=== PATIENT | female | born 1975 | race Caucasian/White ===

== ENCOUNTER 2021-01-12 06:36 | Inpatient (IN) ==
--- NOTE | 2020-12-15 12:29 | PAT Medication Instructions ---
Medication Instructions Date of Service December 15, 2020 Home Medications Medication Instructions Recorded metoprolol tartrate 25 mg tablet 25 mg PO BID #180 tab 11/28/19 lidocaine 5 % topical patch 1 patch TOP DAILY #30 ea 02/25/20 epinephrine 0.3 mg/0.3 mL 0.3 mg IM ONCE PRN #2 ea 03/24/20 injection, auto-injector clobetasol 0.05 % topical cream 1 applic TOP BID #60 g 06/08/20 methotrexate sodium 2.5 mg tablet See Rx Instructions PO WEEKLY #40 08/11/20 tab valacyclovir 500 mg tablet 500 mg PO BID #60 tab 10/06/20 albuterol sulfate 90 mcg/actuation 1 inh INHALATION QID PRN #8.5 g 10/26/20 aerosol inhaler tizanidine 2 mg capsule 2 mg PO Q8H PRN #270 cap 11/16/20 hydroxyzine HCl 25 mg tablet 25 mg PO BID PRN #30 tab 12/04/20 metoprolol tartrate 25 mg tablet 25 mg PO BID lidocaine 5 % topical patch 1 patch TOP DAILY epinephrine 0.3 mg/0.3 mL injection, auto-injector 0.3 mg IM ONCE PRN clobetasol 0.05 % topical cream 1 applic TOP BID methotrexate sodium 2.5 mg tablet PO WEEKLY valacyclovir 500 mg tablet 500 mg PO BID albuterol sulfate 90 mcg/actuation aerosol inhaler 1 inh INHALATION QID PRN tizanidine 2 mg capsule 2 mg PO Q8H PRN hydroxyzine HCl 25 mg tablet 25 mg PO BID PRN buprenorphine-naloxone [Suboxone] 1 tab SUBLINGUAL BID gabapentin 800 mg PO BID Continue as directed lidocaine 5 % topical patch 1 patch TOP DAILY epinephrine 0.3 mg/0.3 mL injection, auto-injector 0.3 mg IM ONCE PRN clobetasol 0.05 % topical cream 1 applic TOP BID *Do not use topical creams on or near surgical site within 24 hours of surgery. ASK your prescriber and surgeon methotrexate sodium 2.5 mg tablet PO WEEKLY DO NOT take the morning of surgery tizanidine 2 mg capsule 2 mg PO Q8H PRN hydroxyzine HCl 25 mg tablet 25 mg PO BID PRN Take morning of surgery With a small sip of water, OTHERWISE NOTHING TO EAT OR DRINK AFTER MIDNIGHT: metoprolol tartrate 25 mg tablet 25 mg PO BID valacyclovir 500 mg tablet 500 mg PO BID albuterol sulfate 90 mcg/actuation aerosol inhaler 1 inh INHALATION QID PRN (if needed) buprenorphine-naloxone [Suboxone] 1 tab SUBLINGUAL BID gabapentin 800 mg PO BID Take evening before surgery metoprolol tartrate 25 mg tablet 25 mg PO BID valacyclovir 500 mg tablet 500 mg PO BID albuterol sulfate 90 mcg/actuation aerosol inhaler 1 inh INHALATION QID PRN (if needed) tizanidine 2 mg capsule 2 mg PO Q8H PRN (if needed) hydroxyzine HCl 25 mg tablet 25 mg PO BID PRN (if needed) buprenorphine-naloxone [Suboxone] 1 tab SUBLINGUAL BID gabapentin 800 mg PO BID Other Notes If you have any questions please call us at [phone] or [phone] or [phone] or [phone]
--- NOTE | 2020-12-16 09:27 | Anesthesiology Consultation ---
Date of Service December 16, 2020 Assessment & Plan (1) Encounter for pre-operative examination: Chart Review Chart Review: Acceptable Risk for Surgery (pending preop Covid testing results ) and Patient seen in Pre Admission Testing PT ADAMANTLY REFUSING SPINAL- REQUESTING GENERAL ANESTHESIA ONLY Per PAT appt on 12/16/20, patient denies any recent travel. No known Covid positive contacts or Covid related symptoms. No known Covid infections in the past 90 days. Preop Covid testing scheduled 01/05/21= awaiting results. Educated on importance of self quarantining, social distancing and wearing mask in public both for the patient and household contacts. Teaching & Discussion Pre-Anesthesia Teaching/Discussion Notes: Instructed NPO after midnight before surgery,except medications with 15 cc of water. Medication instructions pro vided according to the [facility] guidelines. History Surgery Operation Date: 01/12/21 11:15 Proposed Procedures p Left Total Knee Arthroplasty - Jan Yuan DO Height/Weight Height: 5 ft 1 in Weight: 74.4 kg Allergies Allergy/AdvReac Type Severity Reaction Status Date / Time bee venom protein (honey bee) Allergy Severe Anaphylaxis Verified 12/08/20 16:02 iodine Allergy Severe Anaphylaxis Verified 12/08/20 16:02 NSAIDS (Non-Steroidal Allergy Severe Hives Verified 12/08/20 16:02 Anti-Inflamma Penicillins Allergy Severe Hives Verified 12/08/20 16:02 tramadol Allergy Severe Hives Verified 12/08/20 16:02 pregabalin [From Lyrica] Allergy Mild nausea Verified 12/08/20 16:02 aspirin Allergy seizures Verified 12/08/20 16:02 shellfish derived Allergy Anaphylaxis Verified 12/08/20 16:02 duloxetine [From Cymbalta] AdvReac Severe Swelling Verified 12/08/20 16:02 of Lip/Tongue/Throat ketorolac [From Toradol] AdvReac Hives Verified 12/08/20 16:02 Medications Home Medications Medication Instructions Recorded Confirmed Last Taken metoprolol tartrate 25 mg tablet 25 mg PO BID #180 tab 11/28/19 12/08/20 Unknown lidocaine 5 % topical patch 1 patch TOP DAILY #30 ea 02/25/20 12/08/20 Unknown epinephrine 0.3 mg/0.3 mL 0.3 mg IM ONCE PRN #2 ea 03/24/20 12/08/20 Unknown injection, auto-injector clobetasol 0.05 % topical cream 1 applic TOP BID #60 g 06/08/20 12/08/20 Unknown methotrexate sodium 2.5 mg tablet See Rx Instructions PO WEEKLY #40 08/11/20 12/08/20 Unknown tab valacyclovir 500 mg tablet 500 mg PO BID #60 tab 10/06/20 12/08/20 Unknown albuterol sulfate 90 mcg/actuation 1 inh INHALATION QID PRN #8.5 g 10/26/20 12/08/20 Unknown aerosol inhaler tizanidine 2 mg capsule 2 mg PO Q8H PRN #270 cap 11/16/20 12/08/20 Unknown hydroxyzine HCl 25 mg tablet 25 mg PO BID PRN #30 tab 12/04/20 12/08/20 Unknown buprenorphine-naloxone [Suboxone] 1 tab SUBLINGUAL BID 12/08/20 12/08/20 Unknown gabapentin 800 mg PO BID 12/08/20 12/08/20 Unknown Past Medical History Medical History (Updated 12/16/20 @ 16:37 by Stacy Whelan PA-C) ADHD Anxiety Chronic radicular lumbar pain DDD (degenerative disc disease) Fibromyalgia History of anesthesia reaction combative History of seizure 5 years ago - reaction to aspirin per pt HTN (hypertension) Hyperlipidemia no meds at present Lumbar post-laminectomy syndrome Osteoarthritis 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) (imaging at [facility] - last eval 1 year ago) Psoriatic arthritis Follows with rheum Has psoriasis on left knee - pt will be following up with surgeon later today and will inform surgeon Restless leg syndrome Rheumatoid arthritis Sacroiliitis Scoliosis Spondylisthesis TMJ (temporomandibular joint disorder) Jaw clicking- occ locking Exercise / Class Metabolic Activity II 4-5 Yardwork/Stairs/Walk up hill (one flight of stairs- no chest pain or SOB ) Past Family History Family History Mother Diabetes Bladder cancer Anxiety Kidney stones Hypertension Brother Diabetes Hypertension Sister Diabetes Anxiety Kidney stones Hypertension Other No family history of adverse response to anesthesia Denies family history of Ovarian cancer Prostate cancer Myocardial infarction Breast cancer Colorectal cancer Past Surgical History Surgical History History of appendectomy (~1999) History of arthroscopy of left knee History of cholecystectomy (~1999) History of hysterectomy (~2007) History of knee surgery (~2007) Left History of partial hysterectomy History of repair of anterior cruciate ligament of left knee History of spinal surgery x 4 History of tonsillectomy History of tubal ligation Past Anesthesia History No Hx of Anesthesia Complications (with exception to occ combativeness ) and No Family Hx of Anesthesia Complications (with exception to sister being combative post op ) History of PONV No Hx of Motion Sickness and History of PONV Social History Smoking Status: Current every day smoker tobacco type: cigarettes Smoking cigarettes per day: 1/2 ppd Do You Dip or Chew Tobacco: No Hx Alcohol Use: No Hx Substance Use: Yes (on suboxone for pain control per pt) substance use type: marijuana Last Used Substance: Days (ago) Review of Systems Hx of blood transfusion in 2008- s/p lumbar surgery Patient denies chest pain, shortness of breath, dyspnea on exertion, reflux, cough, wheezing, palpitations. No hx of stroke, MS, apnea/snoring. No hx of blood clots. Physical Exam Vital Signs VITALS BP 137/86 P 76 TEMP 98.7 SP02 96% RESP 16 Constitutional no acute distress ENMT Mouth: no TMJ clicking Thyromental Distance: > or= 3.5 Finger Breadths (3.5) Mallampati Class: II Missing all teeth Neck neck extension not limited Respiratory normal respiratory effort; no respiratory distress Auscultation: lungs clear to auscultation bilaterally; no wheezes Cardiovascular Rate/Rhythm: regular rate and regular rhythm Heart Sounds: no murmur Vessels: no carotid bruit Musculoskeletal Spine: no pain with cervical ROM Extremities: extremities normal to inspection Psychiatric Orientation: alert Testing Laboratory Results 12/16/20 10:07 12/16/20 10:07 PT 10.4 Seconds (9.0-12.0) 12/16/20 10:37 INR 1.0 (0.9-1.1) 12/16/20 10:37 APTT 27.7 Seconds (21.0-31.0) 12/16/20 10:37 Hemoglobin A1c 5.5 % (4.5-5.6) 12/16/20 10:07 Urine Color Yellow 12/16/20 10:07 Urine Appearance Clear (Clear) 12/16/20 10:07 Urine pH 5.5 (4.5-7.5) 12/16/20 10:07 Ur Specific [place] 1.019 (1.000-1.030) 12/16/20 10:07 Urine Protein Negative (Negative) 12/16/20 10:07 Urine Glucose (UA) Negative (Negative) 12/16/20 10:07 Urine Ketones Negative (Negative) 12/16/20 10:07 Urine Nitrite Negative (Negative) 12/16/20 10:07 Ur Leukocyte Esterase Negative (Negative) 12/16/20 10:07 Blood Type B Positive 12/16/20 10:07 Antibody Screen NEGATIVE 12/16/20 10:07 Electrocardiogram Date: 12/16/20 Findings: + NSR @ (63bpm) Normal EKG per cardio. Chest X-Ray Date: 12/16/20 Findings: + NAD Cervical Spine Date: 12/16/20 FINDINGS: Lateral, flexion, extension views of the cervical spine were submitted for review. There is 2 mm of anterolisthesis of C4 on C5. This remains unchanged throughout flexion and extension. The remaining vertebral bodies are well aligned. No fractures identified. The cervical spine is visualized from C1 through the superior endplate of T1. The C1-C2 interval is intact. Prevertebral soft tissues are within normal limits. Mild disc space narrowing at C3-C4. Mild to moderate disc space narrowing at C5-C6 and C6-C7 with small endplate osteophytes. IMPRESSION: 1. The C1-C2 interval is intact. 2. Mild anterolisthesis of C4 on C5 which is unchanged throughout flexion and extension. 3. Degenerative changes as described above. Other Testing CTA of neck with contrast 08/30/19= Grossly stable 3mm and 5mm pseudoaneursym arising in the left proximal ICA, along the area of marked tortuosity. No significant stenosis seen in the cervical carotid or vertebral arteries.
--- NOTE | 2020-12-16 10:31 | XRay Report ---
XR chest Pre-admission PA/Lat HISTORY: 45 years-old Female pat chronic low back pain COMPARISON: None TECHNIQUE: PA and lateral views of the chest FINDINGS: Cardiomediastinal and hilar silhouettes are within normal limits. No pneumothorax, pleural effusion, airspace consolidation or overt pulmonary edema. The bones of the chest appear grossly intact. Spondy litic spurring of the spine. Partially imaged lumbar spinal fusion hardware. Surgical clips project o luis the upper abdomen. IMPRESSION: No acute process. ACT 112: Negative or not required by law. The above report was generated using voice recognition software. It may contain grammatical, syntax o r spelling errors. Electronically signed by: Sabino Stone M.D. 12/16/2020 10:30 AM
--- NOTE | 2020-12-16 10:31 | XRay Report ---
XR cervical spine 2 or 3V CLINICAL HISTORY: Rheumatoid arthritis. Preop examination. COMPARISON STUDY: None. FINDINGS: Lateral, flexion, extension views of the cervical spine were submitted for review. There is 2 mm of anterolisthesis of C4 on C5. This remains unchanged throughout flexion and extension. The re maining vertebral bodies are well aligned. No fractures identified. The cervical spine is visualized from C1 through the superior endplate of T1. The C1-C2 interval is intact. Prevertebral soft tissues are within normal limits. Mild disc space narrowing at C3-C4. Mild to moderate disc space narrowing a t C5-C6 and C6-C7 with small endplate osteophytes. IMPRESSION: 1. The C1-C2 interval is intact. 2. Mild anterolisthesis of C4 on C5 which is unchanged throughout flexion and extension. 3. Degenerative changes as described above. ACT 112: Negative or not required by law. Electronically signed by: Michel Baldwin M.D. 12/16/2020 10:30 AM
[2020-12-16 10:43] LABS: Basophils # (auto) 0.03 K/uL (0-0.2); Basophils % (auto) 0.3 %; Eosinophils # (auto) 0.12 K/uL (0-0.5); Eosinophils % (auto) 1.3 %; Hematocrit (blood only) 41.7 % (37-47); Hemoglobin 14.9 g/dL (12.0-16.0); Immature Granulocytes # (auto) 0.02 K/uL (0.00-0.02); Immature Granulocytes % (auto) 0.2 %; Lymphocytes # (auto) 2.73 K/uL (1.2-3.4); Lymphocytes % (auto) 30.6 %; Mean Corpuscular Hgb Conc 35.7 g/dL (32-36); Mean Corpuscular Volume 92.5 fL (80-100); Mean Platelet Volume 9.4 fL (7.4-10.4); Monocytes # (auto) 0.65 K/uL (0.11-0.59); Monocytes % (auto) 7.3 %; Neutrophils # (auto) 5.38 K/uL (1.4-6.5); Neutrophils % (auto) 60.3 %; Platelet Count 392 K/uL (130-400); Red Blood Count 4.51 M/uL (4.2-5.4); White Blood Count 8.93 K/uL (4.8-10.8)
[2020-12-16 11:22] LABS: Appearance Urine Clear (Clear); Bilirubin Urine Negative (Negative); Blood Urine Negative (Negative); Color Urine Yellow; Glucose Urine UA Negative (Negative); Ketones Urine Negative (Negative); Leukocyte Esterase Urine Negative (Negative); Nitrite Urine Negative (Negative); Protein Urine Negative (Negative); Specific Gravity Urine 1.019 (1.000-1.030); Urobilinogen Urine Negative (Negative); pH Urine 5.5 (4.5-7.5)
[2020-12-16 11:23] LABS: Partial Thromboplastin Ratio 1.1; Partial Thromboplastin Time 27.7 Seconds (21.0-31.0); Prothrombin Time 10.4 Seconds (9.0-12.0)
[2020-12-16 11:24] LABS: Estimated Average Glucose 111 mg/dl; Hemoglobin A1C 5.5 % (4.5-5.6)
[2020-12-16 11:56] LABS: Albumin Level 3.6 gm/dl (3.4-5.0); BUN Creatinine Ratio 21.6 (10-20); Calcium 9.3 mg/dl (8.5-10.1); Creatinine Clr Calc Pharmacy 108.7 ml/min; Est GFR (African American) 126.5; Est GFR (Non-African American) 109.1
--- NOTE | 2020-12-17 06:12 | Electrocardiogram Report ---
Test Reason : Blood Pressure : / mmHG Vent. Rate : 063 BPM Atrial Rate : 063 BPM P-R Int : 136 ms QRS Dur : 094 ms QT Int : 426 ms P-R-T Axes : 059 086 071 degrees QTc Int : 435 ms Normal sinus rhythm Normal ECG No previous ECGs available Confirmed by Antonino Foster ([id number]) on 12/17/2020 6:12:20 AM Referred By: Jan Yuan Confirmed By:Antonino Foster
--- NOTE | 2020-12-29 13:16 | History & Physical Report ---
Date of Service December 29, 2020 date of surgery: 01/12/21 Procedure: Left Total Knee Arthroplasty Assessment & Plan (1) Arthritis of knee, left: Further care discussed with patient and at this point in time has failed conservative measures and would like to proceed with a left total knee re placement. Plan on discharge will be home with home health physical therapy. DVT prophalaxis with TEDs, SCDs and will also place on aspirin 81 mg p.o. b.i.d. for a month postop. Patient will have follow up appointment in our office two weeks post op for staple/suture removal and re-evaluation. Patient otherwise has no other questions or concerns. will need to get note from her pain management prov ider with instructions for her post-operative management. The risks and benefits have been discussed including, but not limited to, risk of infection, nerve injury, stiffness, loss of motion, failure to improve, etc. Reasonable outcomes and options of treatment were discussed. An explanation of appropriate alternatives to the procedure that may be advantageous were discussed and their risks and benefits, as well as the risks and benefits of not proceeding with treatment. I offered to answer any additional inquiries concerning the treatment involved. All the patient's questions were answered. The patient is agreeable, understanding of the treatment plan and alternatives, and wishes to proceed with the treatment plan. History of Present Illness Chief Complaint: left knee pain Primary Care Provider: Romain Sim DO Patient is a 45 year old female who complains of left knee pain, presents for pre-op evaluation prior to a left total knee replacement by Dr. Yuan at [facility]. She complains of pain, decreased range of motion and stiffness in her left knee. Currently the patient states that the symptoms are moderate-severe. The pain is described as aching, sharp and throbbing. Her symptoms are aggravated by ascending stairs, daily activities, first steps while awake walking. she is unable to take NSAIDs due to hives. she has been treated with previous cortisone injections in the past without much relief and had prior knee surgery in approximately 2007. Allergies Allergy/AdvReac Type Severity Reaction Status Date / Time bee venom protein (honey bee) Allergy Severe Anaphylaxis Verified 12/08/20 16:02 iodine Allergy Severe Anaphylaxis Verified 12/08/20 16:02 NSAIDS (Non-Steroidal Allergy Severe Hives Verified 12/08/20 16:02 Anti-Inflamma Penicillins Allergy Severe Hives Verified 12/08/20 16:02 tramadol Allergy Severe Hives Verified 12/08/20 16:02 pregabalin [From Lyrica] Allergy Mild nausea Verified 12/08/20 16:02 aspirin Allergy seizures Verified 12/08/20 16:02 shellfish derived Allergy Anaphylaxis Verified 12/08/20 16:02 duloxetine [From Cymbalta] AdvReac Severe Swelling Verified 12/08/20 16:02 of Lip/Tongue/Throat ketorolac [From Toradol] AdvReac Hives Verified 12/08/20 16:02 Home Medications Medication Instructions Recorded Confirmed Type metoprolol tartrate 25 mg tablet 25 mg PO BID #180 tab 11/28/19 12/08/20 Rx lidocaine 5 % topical patch 1 patch TOP DAILY #30 ea 02/25/20 12/08/20 Rx epinephrine 0.3 mg/0.3 mL 0.3 mg IM ONCE PRN #2 ea 03/24/20 12/08/20 Rx injection, auto-injector clobetasol 0.05 % topical cream 1 applic TOP BID #60 g 06/08/20 12/08/20 Rx methotrexate sodium 2.5 mg tablet See Rx Instructions PO WEEKLY #40 08/11/20 12/08/20 Rx tab valacyclovir 500 mg tablet 500 mg PO BID #60 tab 10/06/20 12/08/20 Rx albuterol sulfate 90 mcg/actuation 1 inh INHALATION QID PRN #8.5 g 10/26/20 12/08/20 Rx aerosol inhaler tizanidine 2 mg capsule 2 mg PO Q8H PRN #270 cap 11/16/20 12/08/20 Rx hydroxyzine HCl 25 mg tablet 25 mg PO BID PRN #30 tab 12/04/20 12/08/20 Rx buprenorphine-naloxone [Suboxone] 1 tab SUBLINGUAL BID 12/08/20 12/08/20 History gabapentin 800 mg PO BID 12/08/20 12/08/20 History Past Med/Surg History Medical History ADHD Anxiety Chronic radicular lumbar pain DDD (degenerative disc disease) Fibromyalgia History of anesthesia reaction combative History of seizure 5 years ago - reaction to aspirin per pt HTN (hypertension) Hyperlipidemia no meds at present Lumbar post-laminectomy syndrome Osteoarthritis 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) (imaging at [facility] - last eval 1 year ago) Psoriatic arthritis Follows with rheum Has psoriasis on left knee - pt will be following up with surgeon later today and will inform surgeon Restless leg syndrome Rheumatoid arthritis Sacroiliitis Scoliosis Spondylisthesis TMJ (temporomandibular joint disorder) Jaw clicking- occ locking Surgical History History of appendectomy (~1999) History of arthroscopy of left knee History of cholecystectomy (~1999) History of hysterectomy (~2007) History of knee surgery (~2007) Left History of partial hysterectomy History of repair of anterior cruciate ligament of left knee History of spinal surgery x 4 History of tonsillectomy History of tubal ligation Family History Mother Diabetes Bladder cancer Anxiety Kidney stones Hypertension Brother Diabetes Hypertension Sister Diabetes Anxiety Kidney stones Hypertension Other No family history of adverse response to anesthesia Denies family history of Ovarian cancer Prostate cancer Myocardial infarction Breast cancer Colorectal cancer Social History Smoking Status: Current every day smoker Age Started Using Tobacco: 10; packs per day: 0.5; Years Smoked: 34; Cigarettes Per Day: 1/2 ppd; Second Hand Exposure: No; Do You Dip or Chew Tobacco: No; Tobacco Cessation Education Requested by Patient: No Hx Alcohol Use: No Hx Substance Use: Yes (on suboxone for pain control per pt) Last Used Substance: Days (ago) Preferred Language: Salvadorean Communication Ability: Effective Visual Impairment: No Limitations Hearing Ability: Normal Electrical Foreman Required: No Beliefs That Will Affect Care: None marital status: Current Living Situation: Other Current Living Situation Comment: room mate current occupational status: disabled Feels Safe at Home: Yes Safety Concerns: Feels Safe At This Time Childhood Exposure to Second-Hand Smoke: Yes caffeine: No Dental Care, Regularly: No Physical Activity Frequency: Does not Exercise Seatbelt Use: always Sunscreen Use: Yes Assistive Devices: Brace/Splint/Immobilizer, Denture - Upper, Denture - Lower and Walker Review of Systems Review of Systems: All systems reviewed & are unremarkable except as noted in HPI & below Constitutional: no fever, no chills and no sweats Respiratory: no cough and no dyspnea Cardiovascular: no chest pain, no dyspnea and no orthopnea Gastrointestinal: no abdominal pain, no nausea and no vomiting Musculoskeletal: as per Subjective / HPI Physical Exam Physical Exam: HT: 5ft 1in WT: 74.4kg Constitutional: WD/WN, vitals as above no acute distress Respiratory: normal respiratory effort, lungs clear to auscultation no respiratory distress, no labored breathing and does not use accessory muscles Cardiovascular: RRR, no murmur, no edema Gastrointestinal (Abdomen): normal bowel sounds, soft, nontender, no hepatosplenomegaly Musculoskeletal: Knee: + knee abnormal to inspection (left knee), + effusion (+1 effusion), + surgical incision, + limited ROM of knee (ROM 0/3/110), + knee ROM with crepitation, + joint line tenderness (medial joint line) and + Mónica's sign positive; no deformity, no skin erythema, no ecchymosis, no valgus laxity, no varus laxity, anterior drawer test negative, Nhan's sign negative and pivot shift test negative Results & Data Results & Data ([facility]) Laboratory Results Laboratory Results WBC 8.93 K/uL (4.8-10.8) 12/16/20 10:07 RBC 4.51 M/uL (4.2-5.4) 12/16/20 10:07 Hgb 14.9 g/dL (12.0-16.0) 12/16/20 10:07 Hct 41.7 % (37-47) 12/16/20 10:07 MCV 92.5 fL (80-100) 12/16/20 10:07 MCH 33.0 pg (25-34) 12/16/20 10:07 MCHC 35.7 g/dL (32-36) 12/16/20 10:07 RDW Std Deviation 47.0 fL (36.4-46.3) H 12/16/20 10:07 RDW Coeff of [place] 14.0 % (11.5-14.5) 12/16/20 10:07 Plt Count 392 K/uL (130-400) 12/16/20 10:07 MPV 9.4 fL (7.4-10.4) 12/16/20 10:07 Immature Gran % (Auto) 0.2 % 12/16/20 10:07 Neut % (Auto) 60.3 % 12/16/20 10:07 Lymph % (Auto) 30.6 % 12/16/20 10:07 Valley % (Auto) 7.3 % 12/16/20 10:07 Eos % (Auto) 1.3 % 12/16/20 10:07 Baso % (Auto) 0.3 % 12/16/20 10:07 Neut # (Auto) 5.38 K/uL (1.4-6.5) 12/16/20 10:07 Lymph # (Auto) 2.73 K/uL (1.2-3.4) 12/16/20 10:07 Valley # (Auto) 0.65 K/uL (0.11-0.59) H 12/16/20 10:07 Eos # (Auto) 0.12 K/uL (0-0.5) 12/16/20 10:07 Baso # (Auto) 0.03 K/uL (0-0.2) 12/16/20 10:07 Immature Gran # (Auto) 0.02 K/uL (0.00-0.02) 12/16/20 10:07 PT 10.4 Seconds (9.0-12.0) 12/16/20 10:37 INR 1.0 (0.9-1.1) 12/16/20 10:37 APTT 27.7 Seconds (21.0-31.0) 12/16/20 10:37 PTT Ratio 1.1 12/16/20 10:37 Sodium 137 mmol/L (136-145) 12/16/20 10:07 Potassium 4.0 mmol/L (3.5-5.1) 12/16/20 10:07 Chloride 107 mmol/L (98-107) 12/16/20 10:07 Carbon Dioxide 24 mmol/L (21-32) 12/16/20 10:07 Anion Gap 6.0 (3-11) 12/16/20 10:07 BUN 13 mg/dl (7-18) 12/16/20 10:07 Creatinine 0.59 mg/dl (0.6-1.2) L 12/16/20 10:07 Est Cr Clr Drug Dosing 108.7 ml/min 12/16/20 10:07 Est GFR ( Amer) 126.5 12/16/20 10:07 Est GFR (Non-Af Amer) 109.1 12/16/20 10:07 BUN/Creatinine Ratio 21.6 (10-20) H 12/16/20 10:07 Glucose 93 mg/dl (70-99) 12/16/20 10:07 Estimat Average Glucose 111 mg/dl 12/16/20 10:07 Hemoglobin A1c 5.5 % (4.5-5.6) 12/16/20 10:07 Calcium 9.3 mg/dl (8.5-10.1) 12/16/20 10:07 Albumin 3.6 gm/dl (3.4-5.0) 12/16/20 10:07 Urine Color Yellow 12/16/20 10:07 Urine Appearance Clear (Clear) 12/16/20 10:07 Urine pH 5.5 (4.5-7.5) 12/16/20 10:07 Ur Specific [place] 1.019 (1.000-1.030) 12/16/20 10:07 Urine Protein Negative (Negative) 12/16/20 10:07 Urine Glucose (UA) Negative (Negative) 12/16/20 10:07 Urine Ketones Negative (Negative) 12/16/20 10:07 Urine Blood Negative (Negative) 12/16/20 10:07 Urine Nitrite Negative (Negative) 12/16/20 10:07 Urine Bilirubin Negative (Negative) 12/16/20 10:07 Urine Urobilinogen Negative (Negative) 12/16/20 10:07 Ur Leukocyte Esterase Negative (Negative) 12/16/20 10:07 Blood Type B Positive 12/16/20 10:07 Antibody Screen NEGATIVE 12/16/20 10:07 Impressions Chest X-Ray 12/16/20 07:58 XR chest Pre-admission PA/Lat HISTORY: 45 years-old Female pat chronic low back pain COMPARISON: None TECHNIQUE: PA and lateral views of the chest FINDINGS: Cardiomediastinal and hilar silhouettes are within normal limits. No pneumothorax, pleural effusion, airspace consolidation or overt pulmonary edema. The bones of the chest appear grossly intact. Spondylitic spurring of the spine. Partially imaged lumbar spinal fusion hardware. Surgical clips project over the upper abdomen. IMPRESSION: No acute process. ACT 112: Negative or not required by law. The above report was generated using voice recognition software. It may contain grammatical, syntax or spelling errors. Electronically signed by: Sabino Stone M.D. 12/16/2020 10:30 AM Cervical Spine X-Ray 12/16/20 09:56 XR cervical spine 2 or 3V CLINICAL HISTORY: Rheumatoid arthritis. Preop examination. COMPARISON STUDY: None. FINDINGS: Lateral, flexion, extension views of the cervical spine were submitted for review. There is 2 mm of anterolisthesis of C4 on C5. This remains unchanged throughout flexion and extension. The remaining vertebral bodies are well aligned. No fractures identified. The cervical spine is visualized from C1 through the superior endplate of T1. The C1-C2 interval is intact. Prevertebral soft tissues are within normal limits. Mild disc space narrowing at C3-C4. Mild to moderate disc space narrowing at C5-C6 and C6-C7 with small endplate osteophytes. IMPRESSION: 1. The C1-C2 interval is intact. 2. Mild anterolisthesis of C4 on C5 which is unchanged throughout flexion and extension. 3. Degenerative changes as described above. ACT 112: Negative or not required by law. Electronically signed by: Michel Baldwin M.D. 12/16/2020 10:30 AM Diagnostic Findings Left Knee X-ray from November 2020 confirms advanced degenerative changes to the left knee, greatest lateral compartments and patellofemoral joint, showing joint space narrowing, osteophyte formation and subchondral sclerosis. no acute bony pathology noted. overall valgus alignment.
[~2021-01-12 06:36] MED LIST: ACETAMINOPHEN 500 MG TAB PO SCH; CLINDAMYCIN 600 MG/54 ML BAG IV SCH; FAMOTIDINE 20 MG TAB PO SCH; GABAPENTIN 900 MG DOSE PO SCH; LR 500ML BOLUS, THEN 15ML/HR IV SCH; Scopolamine 1 MG TDSY TD SCH; TRANEXAMIC ACID 1,000 MG **IV Intra-op IV SCH; TRANEXAMIC ACID 1,000 MG **IV Pre-op IV SCH; dexAMETHasone 4 MG TAB PO SCH
--- NOTE | 2021-01-12 07:29 | History & Physical Bridge Note ---
Date of Service January 12, 2021 History & Physical Bridge Note I have examined the patient, reviewed the History & Physical and in the interval since the performance of the History & Physical I have noted the following changes of clinical significance: no changes noted
[2021-01-12] MEDS ORDERED: MIDAZOLAM HCL 1 MG/ML 2ML VIAL ONE (08:18)
[2021-01-12] MEDS ORDERED: fentaNYL citrate 100 MCG/2 ML VIAL ONE ×3 (08:18→13:01)
[2021-01-12] MEDS ORDERED: ATROPINE SULFATE 0.1 MG/ML 10ML SYR IV PRN (10:21)
[2021-01-12] MEDS ORDERED: ePHEDrine sulfate 50 MG/ML AMP IV PRN (10:21)
[2021-01-12] MEDS ORDERED: ONDANSETRON INJ 2 MG/ML 2 ML VIAL IV PRN ×2 (10:21→14:22)
[2021-01-12] MEDS ORDERED: KETAMINE 50 MG/5 ML SYRINGE ONE (10:53)
[2021-01-12] MEDS ORDERED: DexMEDEtomidine HCL IV 100 MCG/ML VIAL ONE (11:03)
[2021-01-12] MEDS ORDERED: HYDROmorphone INJ 2 MG/ML SYR/VIAL ONE (11:13)
[2021-01-12] MEDS ORDERED: GLYCOPYRROLATE 0.2 MG/ML VIAL ONE (11:54)
[2021-01-12] MEDS ORDERED: LARYING-O-JET KIT (LTA) ONE (11:54)
[2021-01-12] MEDS ORDERED: SUCCINYLCHOLINE 100MG/5ML SYR IV ONE (11:54)
[2021-01-12] MEDS ORDERED: LIDOCAINE HCL 2% 2 ML VIAL/AMP(20MG/ML) INFIL ONE (11:54)
[2021-01-12] MEDS ORDERED: NEOSTIGMINE METHYLSULFATE 5 MG/5 ML SYR ONE (11:54)
[2021-01-12] MEDS ORDERED: ROCURONIUM BROMIDE 10 MG/ML 5 ML VIAL IV ONE (11:54)
[2021-01-12] MEDS ORDERED: PROPOFOL IV EMULSION 10 MG/ML 20 ML VIAL IV ONE (11:54)
--- NOTE | 2021-01-12 12:20 | Operative Report ---
Post Operative Report Pre & Post Diagnosis Operation Date: 01/12/21 09:35 Pre-Op Diagnosis: Osteoarthritis of left knee. Post-Op Diagnosis: Osteoarthritis of left knee. I identified the patient and participated in the time-out.: Yes Procedure Operation Date: 01/12/21 09:35 Actual Procedures p Left Total Knee Arthroplasty(Left) utilizing [employer] persona patient matched total knee arthroplasty size 7 femur narrow the tibia 10 medial constrained polytwenty 8 x 8 oval patella- Jan Yuan DO Surgeon Jan Yuan DO Geothermal Field Technician Bipin SHAH Estimated Blood Loss 5 Findings Consistent with Post-Op Diagnosis Patient presents with severe end-stage tricompartmental degenerative joint disease left knee [id number] subchondral sclerosis marginal osteophytes moderate to large effusion Specimens Bone and cartilage Drains Medium bore Hemovac Anesthesia Type General Complications none Disposition Accompanied Patient To Recovery: No Disposition: Recovery Room Indications Patient presents with severe end-stage DJD failed attempted conservative management with physical therapy anti-inflammatories relative rest activity m odification corticosteroid injection Visco supplementation Description of Procedure After proper prepping and draping of the left lower extremity anterior midline incision was made over the region of the extensor extensor mechanism after meticulous hemostasis was obtained and maintained in subcutaneous tissues a medial parapatellar incision was made The patella was subluxed lateralward the medial lateral gutter were cleaned from any hypertrophic synovitis and scar tissue of the distal femoral block was placed and the distal femoral osteotomy cut was made subsequently the chamfers anterior and posterior osteotomy cuts were made utilizing the 4-in-1 block the tibia was subsequently subluxed anteriorward medial and ateral meniscal remnants were excised in their entirety remnants of the anterior and posterior cruciate ligaments were excised in their entirety excellent exposure of the proximal tibia was obtained the tibial osteotomy guide was placed on the proximal tibial osteotomy cut was made once again the knee was irrigated with copious amounts of sterile saline solution the patella was subsequently everted lateralward thickened scar tissue around the patella was removed the patella was subsequently cut utilizing a freehand technique and was drilled prepared for final preparation and placement of patella socially flexion-extension gaps were checked and the equal and symmetric trials were placed to the appropriate femoral and tibial trials with poly-spacer being placed for equal flexion and extension gaps and full range of motion including extension to 0 and flexion to 140 the trial components after having been taken to recovery range of motion was subsequently removed meticulous hemostasis was obtained and maintained subsequently a knee block injection of joint cocktail including ropivacaine 0.5% 150 mg. Bupivacaine 0.5% epinephrine 1-200,030 mL's toradol 30 mg dexamethasone 4 mg ketamine 10 mg clonidine 100 micrograms normal saline solution 30 mg was infiltrated into the soft tissues of the posterior knee medial lateral gutters and periosteal synovium special attention was paid to protect neurovascular structures at all times subsequently trial components having been removed the knee was irrigated with sterile saline solution. debris was removed the proximal tibia was subsequently prepared and was made ready for the placement of the tibial component tibial component was also cemented and tamped into position the femoral component was subsequently placed and cemented in the position the patellar component was subsequently cemented in position because hemostasis once again obtained and maintained wound having been thoroughly irrigated with debridement and debridement lavage was performed as well as a medial parapatellar incision closed with #1 Vicryl in interrupted fashion subcutaneous was closed with #2 Vicryl skin was closed with skin clips. PA-C was necessary for prepping and drapping as well as wound closure of deep fascia Sub cutaneous tissue and skin and was necessary for the case. A sterile compressive dressing was placed patient was taken to recovery in stable condition of report dictated by Kwabena I attest to the content of the Intraoperative Record and any orders documented therein. Any exceptions are noted below. I attest to the content of the Intraoperative Record and any orders documented therein. Any exceptions are noted below.
[2021-01-12] MEDS: fentaNYL citrate 100 MCG/2 ML VIAL IV PRN ×4 (13:11→13:26)
[2021-01-12] MEDS ORDERED: MEPERIDINE HCL 25 MG/ML CARP/VIAL ONE (13:28)
[2021-01-12] MEDS ORDERED: MEPERIDINE HCL 25 MG/ML CARP/VIAL IV PRN ×2 (13:33→13:46)
--- NOTE | 2021-01-12 14:08 | XRay Report ---
XR knee LT 1 or 2V routine HISTORY: 45 years-old Female Surgical Post Op left knee total joint arthroplasty COMPARISON: None TECHNIQUE: 2 views of the left knee FINDINGS: Left knee total joint arthroplasty and patella resurfacing. Anterior midline skin connor are noted a long with expected postoperative soft tissue swelling and deep tissue air with surgical drainage cath eter. No acute fracture or unexpected opaque foreign body. IMPRESSION: Left knee total joint arthroplasty with expected postoperative changes. ACT 112: Negative or not required by law. The above report was generated using voice recognition software. It may contain grammatical, syntax o r spelling errors. Electronically signed by: Rodney Stone M.D. 01/12/2021 2:06 PM
[2021-01-12] MEDS ORDERED: hydrOXYzine HCl 25 MG TAB PO PRN (14:22)
[2021-01-12] MEDS ORDERED: diphenhydrAMINE Capsule 25 MG CAP PO PRN (14:22)
[2021-01-12] MEDS ORDERED: ALBUTEROL HFA 8 GM INHALER INH PRN (14:22)
[2021-01-12] MEDS ORDERED: bisacodyL 10 MG SUPP PR PRN (14:22)
[2021-01-12] MEDS ORDERED: MAGNESIUM HYDROXIDE SUSP 30 ML UDC PO PRN (14:22)
[2021-01-12] MEDS ORDERED: tiZANidine HCL 4 MG TABLET PO PRN (14:22)
[2021-01-12] MEDS ORDERED: METOCLOPRAMIDE HCL INJ 5 MG/ML 2 ML VIAL IV PRN (14:22)
[2021-01-12] MEDS ORDERED: NALOXONE HCL 0.4 MG/1 ML VIAL/CARP IV PRN (14:22)
[2021-01-12] MEDS ORDERED: EPINEPHrine INJ 1 MG/ML AMP IM PRN (14:33)
[2021-01-12] MEDS: [UNRECOGNIZED DRUG - REMARK] SCH ×2 (14:44→14:45)
[2021-01-12] MEDS: ACETAMINOPHEN 500 MG TAB PO SCH ×2 (14:57→20:52)
[2021-01-12] MEDS: oxyCODONE HCL IR 5 MG TAB (IMMEDIATE RELEASE) PO PRN ×3 (14:57→23:50)
[2021-01-12] MEDS: SODIUM CHLORIDE 0.9% 1000ML 1,000 ML IV SCH (14:58)
--- NOTE | 2021-01-12 15:30 | Anesthesiology Progress Note ---
Date of Service January 12, 2021 Anesthesia Post Procedure Vital Signs Vital Signs: Temp Pulse Pulse Resp BP Pulse Ox 01/12/21 15:10 36.6 C 65 16 145/90 H 98 01/12/21 14:42 36.6 C 65 16 165/79 H 98 01/12/21 14:10 36.8 C 65 18 139/88 99 01/12/21 14:00 36.6 C 67 13 146/89 H 146 H 01/12/21 13:50 60 18 138/84 99 01/12/21 13:40 61 12 138/94 98 01/12/21 13:30 60 15 144/88 H 99 01/12/21 13:20 62 17 120/75 100 01/12/21 13:10 65 13 143/81 H 97 01/12/21 13:04 36.5 C 68 20 141/61 H 96 01/12/21 07:26 36.9 C 64 20 157/93 H 98 Pain Intensity Left Knee: Pain Intensity: 9 Transfer of Care Handoff Completed per policy Notes Mental Status: alert / awake / arousable and participated in evaluation Patient Amnestic to Procedure: Yes Nausea / Vomiting: adequately controlled Pain: adequately controlled Airway Patency, RR, SpO2: stable & adequate BP & HR: stable & adequate Hydration State: stable & adequate Anesthetic Complications: no major complications apparent and Pt Satisfied with anesthetic care
[2021-01-12] MEDS: Scopolamine CHECK PATCH PLACEMENT SCH ×2 (16:00→22:51)
[2021-01-12] MEDS: HYDROmorphone INJ 1 MG/ML SYRINGE IV PRN ×2 (17:49→22:01)
[2021-01-12] MEDS: CLINDAMYCIN 600 MG in DEXTROSE 5% 50 ML IV SCH (17:50)
[2021-01-12] MEDS: BUPRENORPHINE/NALOXONE 8/2 MG TAB SL SCH (20:51)
[2021-01-12] MEDS: GABAPENTIN 800 MG TAB PO SCH (20:52)
[2021-01-12] MEDS: DOCUSATE SODIUM 100 MG CAP PO SCH (20:52)
[2021-01-12] MEDS: METOPROLOL TARTRATE 25 MG TAB PO SCH (20:52)
[2021-01-12] MEDS ORDERED: BUPRENORPHINE/NALOXONE 8/2 MG TAB SL SCH (21:00)
[2021-01-12] MEDS ORDERED: SENNA 8.6 MG TAB PO SCH (21:00)
[2021-01-13] MEDS: SODIUM CHLORIDE 0.9% 1000ML 1,000 ML IV SCH (00:45)
[2021-01-13] MEDS: [UNRECOGNIZED DRUG - REMARK] SCH ×2 (00:50→00:51)
[2021-01-13] MEDS: HYDROmorphone INJ 1 MG/ML SYRINGE IV PRN ×3 (01:54→11:53)
[2021-01-13] MEDS: CLINDAMYCIN 600 MG in DEXTROSE 5% 50 ML IV SCH (01:55)
[2021-01-13] MEDS: oxyCODONE HCL IR 5 MG TAB (IMMEDIATE RELEASE) PO PRN ×3 (04:16→14:16)
[2021-01-13] MEDS: ACETAMINOPHEN 500 MG TAB PO SCH ×2 (05:54→14:16)
[2021-01-13 06:19] LABS: Hematocrit (blood only) 40.2 % (37-47); Hemoglobin 14.2 g/dL (12.0-16.0); Mean Corpuscular Hemoglobin 33.4 pg (25-34); Mean Corpuscular Hgb Conc 35.3 g/dL (32-36); Mean Corpuscular Volume 94.6 fL (80-100); Mean Platelet Volume 9.6 fL (7.4-10.4); Platelet Count 365 K/uL (130-400); RDW Coefficient of Variation 14.1 % (11.5-14.5); RDW Standard Deviation 48.1 fL (36.4-46.3); Red Blood Count 4.25 M/uL (4.2-5.4); White Blood Count 14.86 K/uL (4.8-10.8)
[2021-01-13 06:45] LABS: BUN Creatinine Ratio 26.4 (10-20); Calcium 8.9 mg/dl (8.5-10.1); Creatinine Clr Calc Pharmacy 123.8 ml/min; Est GFR (African American) 131.9; Est GFR (Non-African American) 113.8
--- NOTE | 2021-01-13 07:13 | Orthopedic Progress Note ---
Date of Service January 13, 2021 Assessment & Plan (1) History of total left knee replacement: POD #1 s/p Left TKA pt/ot dvt proph with ADILENE/SCD/Lovenox x 2 weeks plan for d/c home with home health PT when stable. will reassess after PT Today she is anxious this am but would like to go home if possible. will see how she performs in PT. she has h/o drug abuse and on Suboxone bid. has been seen by [facility] in the past, will consult for recommendations for her home pain management. she would like HHPT, will discuss with CM for authorization. Admission and Anticipated Discharge Date Admission Date: January 12, 2021 Subjective POD #1 s/p Left TKA Review of Systems Constitutional: no fever, no chills and no sweats Respiratory: no cough and no dyspnea Cardiovascular: no chest pain and no dyspnea Gastrointestinal: no abdominal pain, no nausea and no vomiting Physical Exam Physical Exam: Vital Signs Temp 36.8 C 01/13/21 02:46 Pulse 70 01/13/21 02:46 Resp 22 01/13/21 02:46 BP 120/76 01/13/21 02:46 Pulse Ox 97 01/13/21 02:46 Intake & Output 01/12/21 01/13/21 01/13/21 18:59 06:59 18:59 Intake Total 2326 / 3355 1029 / 3355 Output Total 660 / 1835 1175 / 1835 Balance 1666 / 1520 -146 / 1520 Weight 74.85 kg Intake: IV 308 / 1337 1029 / 1337 Clindamycin 60 0 mg In Dextrose 54 / 108 54 / 108 5% 50 ml @ 100 mls/hr IV Q8H [facility] Rx#:[id number] Clindamycin 60 0 mg In 54 ml @ 54 / 54 100 mls/hr IV PREOP [facility] Rx#: [id number] Lactated Ringe r's 1,000 ml @ 15 0 / 0 mls/hr IV .Q24 H [facility] Rx#: [id number] Sodium Chlorid e 0.9% 1000ML 1, 975 / 975 000 ml @ 100 m ls/hr IV .Q10H [facility] Rx#:[id number] Tranexamic Aci d / 0.7% NaCl 1, 200 / 200 000 mg In 100 ml @ 600 mls/hr IV TODAY@0600 [facility] Rx#:[id number] IV Perioperative 1700 / 1700 Oral 240 / 240 Other Output: Urine 650 / 1650 1000 / 1650 Estimated Blood Loss 5 / 5 Drain Output 5 / 180 175 / 180 Left Knee Hemo vac 5 / 180 175 / 180 Other: Other Intake Ellie rce or IV fluid # Unmeasured Voi ds 1 Weight Measureme nt Method Standing Scale Constitutional: WD/WN, vitals as above no acute distress Musculoskeletal: Left Leg: NVDI, calf SNT, negative abhi sign. DP palpable, able to wiggle toes/ankle movement without difficulty. dressing clean dry and intact. Vital Signs Temp 36.8 C 01/13/21 02:46 Pulse 70 01/13/21 02:46 Resp 22 01/13/21 02:46 BP 120/76 01/13/21 02:46 Pulse Ox 97 01/13/21 02:46 Intake & Output 01/12/21 01/13/21 01/13/21 18:59 06:59 18:59 Intake Total 2326 / 3355 1029 / 3355 Output Total 660 / 1835 1175 / 1835 Balance 1666 / 1520 -146 / 1520 Weight 74.85 kg Intake: IV 308 / 1337 1029 / 1337 Clindamycin 60 0 mg In Dextrose 54 / 108 54 / 108 5% 50 ml @ 100 mls/hr IV Q8H [facility] Rx#:[id number] Clindamycin 60 0 mg In 54 ml @ 54 / 54 100 mls/hr IV PREOP [facility] Rx#: [id number] Lactated Ringe r's 1,000 ml @ 15 0 / 0 mls/hr IV .Q24 H [facility] Rx#: [id number] Sodium Chlorid e 0.9% 1000ML 1, 975 / 975 000 ml @ 100 m ls/hr IV .Q10H [facility] Rx#:[id number] Tranexamic Aci d / 0.7% NaCl 1, 200 / 200 000 mg In 100 ml @ 600 mls/hr IV TODAY@0600 [facility] Rx#:[id number] IV Perioperative 1700 / 1700 Oral 240 / 240 Other Output: Urine 650 / 1650 1000 / 1650 Estimated Blood Loss 5 / 5 Drain Output 5 / 180 175 / 180 Left Knee Hemo vac 5 / 180 175 / 180 Other: Other Intake Ellie rce or IV fluid # Unmeasured Voi ds 1 Weight Measureme nt Method Standing Scale Results & Data ([facility]) Vital Signs (Past 12 Hours) Vital Signs Temp Pulse Resp BP Pulse Ox 01/13/21 02:46 36.8 C 70 22 120/76 97 01/12/21 21:30 37.2 C 61 16 129/80 95 01/12/21 19:19 36.6 C 77 16 158/87 H 96 Laboratory Results Laboratory Results WBC 14.86 K/uL (4.8-10.8) H 01/13/21 05:36 RBC 4.25 M/uL (4.2-5.4) 01/13/21 05:36 Hgb 14.2 g/dL (12.0-16.0) 01/13/21 05:36 Hct 40.2 % (37-47) 01/13/21 05:36 MCV 94.6 fL (80-100) 01/13/21 05:36 MCH 33.4 pg (25-34) 01/13/21 05:36 MCHC 35.3 g/dL (32-36) 01/13/21 05:36 RDW Std Deviation 48.1 fL (36.4-46.3) H 01/13/21 05:36 RDW Coeff of [place] 14.1 % (11.5-14.5) 01/13/21 05:36 Plt Count 365 K/uL (130-400) 01/13/21 05:36 MPV 9.6 fL (7.4-10.4) 01/13/21 05:36 Immature Gran % (Auto) 0.2 % 12/16/20 10:07 Neut % (Auto) 60.3 % 12/16/20 10:07 Lymph % (Auto) 30.6 % 12/16/20 10:07 Ness % (Auto) 7.3 % 12/16/20 10:07 Eos % (Auto) 1.3 % 12/16/20 10:07 Baso % (Auto) 0.3 % 12/16/20 10:07 Neut # (Auto) 5.38 K/uL (1.4-6.5) 12/16/20 10:07 Lymph # (Auto) 2.73 K/uL (1.2-3.4) 12/16/20 10:07 Ness # (Auto) 0.65 K/uL (0.11-0.59) H 12/16/20 10:07 Eos # (Auto) 0.12 K/uL (0-0.5) 12/16/20 10:07 Baso # (Auto) 0.03 K/uL (0-0.2) 12/16/20 10:07 Immature Gran # (Auto) 0.02 K/uL (0.00-0.02) 12/16/20 10:07 PT 10.4 Seconds (9.0-12.0) 12/16/20 10:37 INR 1.0 (0.9-1.1) 12/16/20 10:37 APTT 27.7 Seconds (21.0-31.0) 12/16/20 10:37 PTT Ratio 1.1 12/16/20 10:37 Sodium 138 mmol/L (136-145) 01/13/21 05:36 Potassium 4.0 mmol/L (3.5-5.1) 01/13/21 05:36 Chloride 109 mmol/L (98-107) H 01/13/21 05:36 Carbon Dioxide 24 mmol/L (21-32) 01/13/21 05:36 Anion Gap 5.0 (3-11) 01/13/21 05:36 BUN 14 mg/dl (7-18) 01/13/21 05:36 Creatinine 0.52 mg/dl (0.6-1.2) L 01/13/21 05:36 Est Cr Clr Drug Dosing 123.8 ml/min 01/13/21 05:36 Est GFR ( Amer) 131.9 01/13/21 05:36 Est GFR (Non-Af Amer) 113.8 01/13/21 05:36 BUN/Creatinine Ratio 26.4 (10-20) H 01/13/21 05:36 Glucose 121 mg/dl (70-99) H 01/13/21 05:36 Estimat Average Glucose 111 mg/dl 12/16/20 10:07 Hemoglobin A1c 5.5 % (4.5-5.6) 12/16/20 10:07 Calcium 8.9 mg/dl (8.5-10.1) 01/13/21 05:36 Albumin 3.6 gm/dl (3.4-5.0) 12/16/20 10:07 Urine Color Yellow 12/16/20 10:07 Urine Appearance Clear (Clear) 12/16/20 10:07 Urine pH 5.5 (4.5-7.5) 12/16/20 10:07 Ur Specific Alexander 1.019 (1.000-1.030) 12/16/20 10:07 Urine Protein Negative (Negative) 12/16/20 10:07 Urine Glucose (UA) Negative (Negative) 12/16/20 10:07 Urine Ketones Negative (Negative) 12/16/20 10:07 Urine Blood Negative (Negative) 12/16/20 10:07 Urine Nitrite Negative (Negative) 12/16/20 10:07 Urine Bilirubin Negative (Negative) 12/16/20 10:07 Urine Urobilinogen Negative (Negative) 12/16/20 10:07 Ur Leukocyte Esterase Negative (Negative) 12/16/20 10:07 COVID-19 Eval Order Covid19 IDNow [facility] 01/12/21 07:00 SARS-CoV-2, RNA, NAAT NEGATIVE (NEGATIVE) 01/12/21 07:00 Blood Type B Positive 12/16/20 10:07 Antibody Screen NEGATIVE 12/16/20 10:07 Impressions Chest X-Ray 12/16/20 07:58 XR chest Pre-admission PA/Lat HISTORY: 45 years-old Female pat chronic low back pain COMPARISON: None TECHNIQUE: PA and lateral views of the chest FINDINGS: Cardiomediastinal and hilar silhouettes are within normal limits. No pneumothorax, pleural effusion, airspace consolidation or overt pulmonary edema. The bones of the chest appear grossly intact. Spondylitic spurring of the spine. Partially imaged lumbar spinal fusion hardware. Surgical clips project over the upper abdomen. IMPRESSION: No acute process. ACT 112: Negative or not required by law. The above report was generated using voice recognition software. It may contain grammatical, syntax or spelling errors. Electronically signed by: Sabino Stone M.D. 12/16/2020 10:30 AM Cervical Spine X-Ray 12/16/20 09:56 XR cervical spine 2 or 3V CLINICAL HISTORY: Rheumatoid arthritis. Preop examination. COMPARISON STUDY: None. FINDINGS: Lateral, flexion, extension views of the cervical spine were submitted for review. There is 2 mm of anterolisthesis of C4 on C5. This remains unchanged throughout flexion and extension. The remaining vertebral bodies are well aligned. No fractures identified. The cervical spine is visualized from C1 through the superior endplate of T1. The C1-C2 interval is intact. Prevertebral soft tissues are within normal limits. Mild disc space narrowing at C3-C4. Mild to moderate disc space narrowing at C5-C6 and C6-C7 with small endplate osteophytes. IMPRESSION: 1. The C1-C2 interval is intact. 2. Mild anterolisthesis of C4 on C5 which is unchanged throughout flexion and extension. 3. Degenerative changes as described above. ACT 112: Negative or not required by law. Electronically signed by: Michel Baldwin M.D. 12/16/2020 10:30 AM Knee X-Ray 01/12/21 13:31 XR knee LT 1 or 2V routine HISTORY: 45 years-old Female Surgical Post Op left knee total joint arthroplasty COMPARISON: None TECHNIQUE: 2 views of the left knee FINDINGS: Left knee total joint arthroplasty and patella resurfacing. Anterior midline skin connor are noted along with expected postoperative soft tissue swelling and deep tissue air with surgical drainage catheter. No acute fracture or unexpected opaque foreign body. IMPRESSION: Left knee total joint arthroplasty with expected postoperative changes. ACT 112: Negative or not required by law. The above report was generated using voice recognition software. It may contain grammatical, syntax or spelling errors. Electronically signed by: Rodney Stone M.D. 01/12/2021 2:06 PM Diagnostic Findings XR knee LT 1 or 2V routine HISTORY: 45 years-old Female Surgical Post Op left knee total joint arthroplasty COMPARISON: None TECHNIQUE: 2 views of the left knee FINDINGS: Left knee total joint arthroplasty and patella resurfacing. Anterior midline skin connor are noted along with expected postoperative soft tissue swelling and deep tissue air with surgical drainage catheter. No acute fracture or unexpected opaque foreign body.
--- NOTE | 2021-01-13 08:15 | Pain Management Consultation ---
Date of Consultation January 13, 2021 Assessment & Plan (1) History of total left knee replacement: Present on Admission?: Yes (2) Arthritis of knee, left: Present on Admission?: Yes (3) History of drug abuse: 1. PDMP was reviewed which revealed the patient has been prescribed only Suboxone consistently since July 2020. The patient has had 48 total prescriptions with 6 prescribers over the past 2 years per review of the PDMP. Her current prescribing physician is Dr. Nicholson in the [facility]. 2. Would recommend short-term prescription for hydrocodone versus Percocet at every 6 hours interval for as needed pain control for approximately 7 days postoperatively as directed by Ortho. 3. Would recommend close follow-up with her outpatient Suboxone prescribing physician Thank you for allowing us to participate in the care of Mrs. Cade. Please contact pain service for further input as needed. Present on Admission?: Yes History of Present Illness Reason for Consultation: Left knee pain status post TKA Requesting Physician: Jan Yuan DO Attending Physician: Jan Yuan DO History of Present Illness Mrs. Cade is a 45-year-old white female who underwent a left TKA yesterday 01/12/2021 for treatment of chronic left knee pain associated with osteoarthritis which had failed all conservative management over the past few years. The patient had complaints of pain, stiffness, decreased range of motion and difficu lty completing ADL activities. The patient has a known past medical history significant for illicit drug use and opiate misuse/abuse. The patient has been on Suboxone therapy over the past 1 year through a Suboxone clinic in the [facility]. The patient's most recent follow-up with our clinic was in November per her report. She reports that they did minimally discuss her postoperative pain control and no definitive recommendations were made by her physician. The patient further reports that she utilizes medical marijuana in a vape form and does have an active medical marijuana card per her report. She reports that it is effective at diminishing her pain. Patient indicates that her left knee pain is currently a 5-6/10. Her pain can escalate to an 8-9/10. She has been utilizing IV hydromorphone and oxycodone over the past 12 hours utilizing 4 mg of IV hydromorphone and 40 mg of oxycodone. The patient reports these medications are effective at diminishing her pain. The patient denies side effects to these medications. The patient has been out of bed to the bathroom with minimal limitation with increased discomfort. Patient indicates that her pain is to be expected. Patient is hopeful to be able to return home today. The patient did deny any use of illicit drugs over the past 1 year while in the Suboxone program. The patient does report some similar right-sided knee pain and is concerned that she will need to have a right TKA in the future. She otherwise has no further constitutional complaints at this time. Plan of care discussed with Dr. Zo Jordan. Pain Assessment Full Body Front + Back: 1. Left knee status post TKA Pain scale - at its best (0-10): 5 Pain scale - at its worst (0-10): 9 Allergies Allergy/AdvReac Type Severity Reaction Status Date / Time bee venom protein (honey bee) Allergy Severe Anaphylaxis Verified 01/12/21 07:16 iodine Allergy Severe Anaphylaxis Verified 01/12/21 07:16 NSAIDS (Non-Steroidal Allergy Severe Hives Verified 01/12/21 07:16 Anti-Inflamma Penicillins Allergy Severe Hives Verified 01/12/21 07:16 tramadol Allergy Severe Hives Verified 01/12/21 07:16 pregabalin [From Lyrica] Allergy Mild nausea Verified 01/12/21 07:16 aspirin Allergy seizures Verified 01/12/21 07:16 ketorolac [From Toradol] Allergy Hives Verified 01/12/21 07:16 shellfish derived Allergy Anaphylaxis Verified 01/12/21 07:16 duloxetine [From Cymbalta] AdvReac Severe Swelling Verified 01/12/21 07:16 of Lip/Tongue/Throat Home Medications Medication Instructions Recorded Confirmed Type metoprolol tartrate 25 mg tablet 25 mg PO BID #180 tab 11/28/19 01/05/21 Rx lidocaine 5 % topical patch 1 patch TOP DAILY #30 ea 02/25/20 01/12/21 Rx clobetasol 0.05 % topical cream 1 applic TOP BID #60 g 06/08/20 01/12/21 Rx methotrexate sodium 2.5 mg tablet See Rx Instructions PO WEEKLY #40 08/11/20 01/12/21 Rx tab valacyclovir 500 mg tablet 500 mg PO BID #60 tab 10/06/20 01/12/21 Rx tizanidine 2 mg capsule 2 mg PO Q8H PRN #270 cap 11/16/20 01/12/21 Rx hydroxyzine HCl 25 mg tablet 25 mg PO BID PRN #30 tab 12/04/20 01/12/21 Rx buprenorphine-naloxone [Suboxone] 1 tab SUBLINGUAL BID 12/08/20 01/05/21 History gabapentin 800 mg PO BID 12/08/20 01/12/21 History albuterol sulfate 90 mcg/actuation 1 inh INHALATION QID PRN #8.5 g 01/05/2107/25 Rx aerosol inhaler epinephrine 0.3 mg/0.3 mL 0.3 mg IM ONCE PRN #2 ea 01/05/21 01/12/21 Rx injection, auto-injector Pain History Pain Intensity Pain scale - at its best (0-10): 5 Pain scale - at its worst (0-10): 9 Patient History Medical History (Updated 01/13/21 @ 08:19 by Maged Da Silva PA-C) ADHD Anxiety Chronic radicular lumbar pain DDD (degenerative disc disease) Fibromyalgia History of anesthesia reaction combative History of drug abuse History of seizure 5 years ago - reaction to aspirin per pt HTN (hypertension) Hyperlipidemia no meds at present Lumbar post-laminectomy syndrome Osteoarthritis 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) (imaging at [facility] - last eval 1 year ago) Psoriatic arthritis Follows with rheum Has psoriasis on left knee - pt will be following up with surgeon later today and will inform surgeon Restless leg syndrome Rheumatoid arthritis Sacroiliitis Scoliosis Spondylisthesis TMJ (temporomandibular joint disorder) Jaw clicking- occ locking Surgical History (Updated 01/13/21 @ 07:11 by Bipin Moran PA-C) History of appendectomy (~1999) History of arthroscopy of left knee History of cholecystectomy (~1999) History of hysterectomy (~2007) History of knee surgery (~2007) Left History of partial hysterectomy History of repair of anterior cruciate ligament of left knee History of spinal surgery x 4 History of tonsillectomy History of tubal ligation Family History Mother Diabetes Bladder cancer Anxiety Kidney stones Hypertension Brother Diabetes Hypertension Sister Diabetes Anxiety Kidney stones Hypertension Other No family history of adverse response to anesthesia Denies family history of Ovarian cancer Prostate cancer Myocardial infarction Breast cancer Colorectal cancer Social History (Updated 01/05/21 @ 08:35 by SHAMIR Callejas) Smoking Status: Current every day smoker Age Started Using Tobacco: 10; packs per day: 0.5; Years Smoked: 34; Cigarettes Per Day: 1/2 ppd; Second Hand Exposure: No; Do You Dip or Chew Tobacco: No; Tobacco Cessation Education Requested by Patient: No Hx Alcohol Use: No Hx Substance Use: Yes (on suboxone for pain control per pt) Last Used Substance: Days (ago) Preferred Language: Nigerian Communication Ability: Effective Visual Impairment: No Limitations Hearing Ability: Normal Childcare Teacher Required: No Beliefs That Will Affect Care: None marital status: Single Current Living Situation: Other Current Living Situation Comment: room mate current occupational status: disabled Feels Safe at Home: Yes Safety Concerns: Feels Safe At This Time Childhood Exposure to Second-Hand Smoke: Yes caffeine: No Dental Care, Regularly: No Physical Activity Frequency: Does not Exercise Seatbelt Use: always Sunscreen Use: Yes Assistive Devices: Brace/Splint/Immobilizer, Denture - Upper, Denture - Lower and Walker Physical Exam Physical Exam: General: Patient lying quietly in exam room in no acute distress. Speech and thought process appropriate. Patient is fidgety with her hands and appears anxious. Cognition intact. Head: Normocephalic and atraumatic. ENT: No evidence of nasal or oral mucosal lesions. Mucous membranes are moist. Abdomen: Soft and nondistended. No organomegaly. Bowel sounds active. Lower extremities: Large Eduardo wrap in place over the left knee extending from the mid-distal thigh to the mid-distal pretibial region. This was not removed for visual inspection. Patient has a drain in place. Sensation was intact distally of the toes to sharp and dull. Strength testing was 5/5 with dorsi and plantar flexion bilaterally as well as EHL testing. There is no appreciable edema of the foot or ankle region bilaterally. Neurologic: Cranial nerves grossly intact. Ambulatory function not witnessed.
[2021-01-13] MEDS: BUPRENORPHINE/NALOXONE 8/2 MG TAB SL SCH (08:26)
[2021-01-13] MEDS: GABAPENTIN 800 MG TAB PO SCH (08:27)
[2021-01-13] MEDS: Scopolamine CHECK PATCH PLACEMENT SCH (08:27)
[2021-01-13] MEDS: DOCUSATE SODIUM 100 MG CAP PO SCH (08:27)
[2021-01-13] MEDS: METOPROLOL TARTRATE 25 MG TAB PO SCH (08:27)
[2021-01-13] MEDS ORDERED: MULTIVITAMIN TAB PO SCH (09:00)
[2021-01-13] MEDS ORDERED: ENOXAPARIN INJ 40 MG/0.4 ML SYR SQ SCH (11:30)
--- NOTE | 2021-01-13 14:27 | Discharge Summary ---
Date of Service date of discharge: January 13, 2021 date of admission: 01/12/21 Admission HPI Per Admitting Provider Patient is a 45 year old female who complains of left knee pain, presents for pre-op evaluation prior to a left total knee replacement by Dr. Yuan at [facility]. She complains of pain, decreased range of motion and stiffness in her left knee. Currently the patient states that the symptoms are moderate-severe. The pain is described as aching, sharp and throbbing. Her symptoms are aggravated by ascending stairs, daily activities, first steps while awake walking. she is unable to take NSAIDs due to hives. she has been treated with previous cortisone injections in the past without much relief and had prior knee surgery in approximately 2007. Principal Diagnosis left knee arthritis Discharge Exam Vital Signs Temp 37.0 C 01/13/21 07:26 Pulse 66 01/13/21 07:26 Resp 18 01/13/21 07:26 BP 136/77 01/13/21 07:26 Pulse Ox 95 01/13/21 07:26 Intake & Output 01/12/21 01/13/21 01/13/21 18:59 06:59 18:59 Intake Total 2326 / 3355 1029 / 3355 Output Total 660 / 1835 1175 / 1835 Balance 1666 / 1520 -146 / 1520 Weight 74.85 kg Intake: IV 308 / 1337 1029 / 1337 Clindamycin 600 mg In Dextrose 54 / 108 54 / 108 5% 50 ml @ 100 mls/hr IV Q8H [facility] Rx#:[id number] Clindamycin 600 mg In 54 ml @ 54 / 54 100 mls/hr IV PREOP [facility] Rx#: [id number] Lactated Ringer's 1,000 ml @ 15 0 / 0 mls/hr IV .Q24H [facility] Rx#: [id number] Sodium Chloride 0.9% 1000ML 1, 975 / 975 000 ml @ 100 mls/hr IV .Q10H [facility] Rx#:[id number] Tranexamic Acid / 0.7% NaCl 1, 200 / 200 000 mg In 100 ml @ 600 mls/hr IV TODAY@0600 [facility] Rx#:[id number] IV Perioperative 1700 / 1700 Oral 240 / 240 Other 78 / 78 Output: Urine 650 / 1650 1000 / 1650 Estimated Blood Loss 5 / 5 Drain Output 5 / 180 175 / 180 Left Knee Hemovac 175 / 180 Other: Other Intake Source or IV fluid # Unmeasured Voids 1 Weight Measurement Method Standing Scale Constitutional WD/WN, vitals as above no acute distress Musculoskeletal left knee: NVDI, calf SNT, negative abhi sign. DP palpable, able to wiggle toes/ankle movement without difficulty. dressing clean dry and intact. expected post-operative bruising noted. Discharge Data Allergies Allergy/AdvReac Type Severity Reaction Status Date / Time bee venom protein (honey bee) Allergy Severe Anaphylaxis Verified 01/12/21 07:16 iodine Allergy Severe Anaphylaxis Verified 01/12/21 07:16 NSAIDS (Non-Steroidal Allergy Severe Hives Verified 01/12/21 07:16 Anti-Inflamma Penicillins Allergy Severe Hives Verified 01/12/21 07:16 tramadol Allergy Severe Hives Verified 01/12/21 07:16 pregabalin [From Lyrica] Allergy Mild nausea Verified 01/12/21 07:16 aspirin Allergy seizures Verified 01/12/21 07:16 ketorolac [From Toradol] Allergy Hives Verified 01/12/21 07:16 shellfish derived Allergy Anaphylaxis Verified 01/12/21 07:16 duloxetine [From Cymbalta] AdvReac Severe Swelling Verified 01/12/21 07:16 of Lip/Tongue/Throat Consultations 01/12/21 12:55 Consult Pain Management Routine Procedures Performed Operation Date: 01/12/21 09:35 Actual Procedures p Left Total Knee Arthroplasty(Left) - Jan Yuan DO Ordered Studies 01/12/21 05:00 US - OR guided needle placemen Routine Hospital Course (1) History of total left knee replacement: POD #1 s/p Left TKA pt/ot dvt proph with ADILENE/SCD/Lovenox x 2 weeks plan for d/c home with home health PT when stable. will reassess after PT Today she is anxious this am but would like to go home if possible. will see how she performs in PT. she has h/o drug abuse and on Suboxone bid. has been seen by [facility] in the past, will consult for recommendations for her home pain management. she would like HHPT, will discuss with CM for authorization. Laboratory Results WBC 14.86 K/uL (4.8-10.8) H 01/13/21 05:36 RBC 4.25 M/uL (4.2-5.4) 01/13/21 05:36 Hgb 14.2 g/dL (12.0-16.0) 01/13/21 05:36 Hct 40.2 % (37-47) 01/13/21 05:36 MCV 94.6 fL (80-100) 01/13/21 05:36 MCH 33.4 pg (25-34) 01/13/21 05:36 MCHC 35.3 g/dL (32-36) 01/13/21 05:36 RDW Std Deviation 48.1 fL (36.4-46.3) H 01/13/21 05:36 RDW Coeff of [place] 14.1 % (11.5-14.5) 01/13/21 05:36 Plt Count 365 K/uL (130-400) 01/13/21 05:36 MPV 9.6 fL (7.4-10.4) 01/13/21 05:36 Immature Gran % (Auto) 0.2 % 12/16/20 10:07 Neut % (Auto) 60.3 % 12/16/20 10:07 Lymph % (Auto) 30.6 % 12/16/20 10:07 [place] % (Auto) 7.3 % 12/16/20 10:07 Eos % (Auto) 1.3 % 12/16/20 10:07 Baso % (Auto) 0.3 % 12/16/20 10:07 Neut # (Auto) 5.38 K/uL (1.4-6.5) 12/16/20 10:07 Lymph # (Auto) 2.73 K/uL (1.2-3.4) 12/16/20 10:07 [place] # (Auto) 0.65 K/uL (0.11-0.59) H 12/16/20 10:07 Eos # (Auto) 0.12 K/uL (0-0.5) 12/16/20 10:07 Baso # (Auto) 0.03 K/uL (0-0.2) 12/16/20 10:07 Immature Gran # (Auto) 0.02 K/uL (0.00-0.02) 12/16/20 10:07 PT 10.4 Seconds (9.0-12.0) 12/16/20 10:37 INR 1.0 (0.9-1.1) 12/16/20 10:37 APTT 27.7 Seconds (21.0-31.0) 12/16/20 10:37 PTT Ratio 1.1 12/16/20 10:37 Sodium 138 mmol/L (136-145) 01/13/21 05:36 Potassium 4.0 mmol/L (3.5-5.1) 01/13/21 05:36 Chloride 109 mmol/L (98-107) H 01/13/21 05:36 Carbon Dioxide 24 mmol/L (21-32) 01/13/21 05:36 Anion Gap 5.0 (3-11) 01/13/21 05:36 BUN 14 mg/dl (7-18) 01/13/21 05:36 Creatinine 0.52 mg/dl (0.6-1.2) L 01/13/21 05:36 Est Cr Clr Drug Dosing 123.8 ml/min 01/13/21 05:36 Est GFR ( Amer) 131.9 01/13/21 05:36 Est GFR (Non-Af Amer) 113.8 01/13/21 05:36 BUN/Creatinine Ratio 26.4 (10-20) H 01/13/21 05:36 Glucose 121 mg/dl (70-99) H 01/13/21 05:36 Estimat Average Glucose 111 mg/dl 12/16/20 10:07 Hemoglobin A1c 5.5 % (4.5-5.6) 12/16/20 10:07 Calcium 8.9 mg/dl (8.5-10.1) 01/13/21 05:36 Albumin 3.6 gm/dl (3.4-5.0) 12/16/20 10:07 Urine Color Yellow 12/16/20 10:07 Urine Appearance Clear (Clear) 12/16/20 10:07 Urine pH 5.5 (4.5-7.5) 12/16/20 10:07 Ur Specific [place] 1.019 (1.000-1.030) 12/16/20 10:07 Urine Protein Negative (Negative) 12/16/20 10:07 Urine Glucose (UA) Negative (Negative) 12/16/20 10:07 Urine Ketones Negative (Negative) 12/16/20 10:07 Urine Blood Negative (Negative) 12/16/20 10:07 Urine Nitrite Negative (Negative) 12/16/20 10:07 Urine Bilirubin Negative (Negative) 12/16/20 10:07 Urine Urobilinogen Negative (Negative) 12/16/20 10:07 Ur Leukocyte Esterase Negative (Negative) 12/16/20 10:07 COVID-19 Eval Order Covid19 [facility]Now [facility] 01/12/21 07:00 SARS-CoV-2, RNA, NAAT NEGATIVE (NEGATIVE) 01/12/21 07:00 Blood Type B Positive 12/16/20 10:07 Antibody Screen NEGATIVE 12/16/20 10:07 Impressions Chest X-Ray 12/16/20 07:58 XR chest Pre-admission PA/Lat HISTORY: 45 years-old Female pat chronic low back pain COMPARISON: None TECHNIQUE: PA and lateral views of the chest FINDINGS: Cardiomediastinal and hilar silhouettes are within normal limits. No pneumothorax, pleural effusion, airspace consolidation or overt pulmonary edema. The bones of the chest appear grossly intact. Spondylitic spurring of the spine. Partially imaged lumbar spinal fusion hardware. Surgical clips project over the upper abdomen. IMPRESSION: No acute process. ACT 112: Negative or not required by law. The above report was generated using voice recognition software. It may contain grammatical, syntax or spelling errors. Electronically signed by: Sabino Stone M.D. 12/16/2020 10:30 AM Cervical Spine X-Ray 12/16/20 09:56 XR cervical spine 2 or 3V CLINICAL HISTORY: Rheumatoid arthritis. Preop examination. COMPARISON STUDY: None. FINDINGS: Lateral, flexion, extension views of the cervical spine were submitted for review. There is 2 mm of anterolisthesis of C4 on C5. This remains unchanged throughout flexion and extension. The remaining vertebral bodies are well aligned. No fractures identified. The cervical spine is visualized from C1 through the superior endplate of T1. The C1-C2 interval is intact. Prevertebral soft tissues are within normal limits. Mild disc space narrowing at C3-C4. Mild to moderate disc space narrowing at C5-C6 and C6-C7 with small endplate osteophytes. IMPRESSION: 1. The C1-C2 interval is intact. 2. Mild anterolisthesis of C4 on C5 which is unchanged throughout flexion and extension. 3. Degenerative changes as described above. ACT 112: Negative or not required by law. Electronically signed by: Michel Baldwin M.D. 12/16/2020 10:30 AM Knee X-Ray 01/12/21 13:31 XR knee LT 1 or 2V routine HISTORY: 45 years-old Female Surgical Post Op left knee total joint arthroplasty COMPARISON: None TECHNIQUE: 2 views of the left knee FINDINGS: Left knee total joint arthroplasty and patella resurfacing. Anterior midline skin connor are noted along with expected postoperative soft tissue swelling and deep tissue air with surgical drainage catheter. No acute fracture or unexpected opaque foreign body. IMPRESSION: Left knee total joint arthroplasty with expected postoperative changes. ACT 112: Negative or not required by law. The above report was generated using voice recognition software. It may contain grammatical, syntax or spelling errors. Electronically signed by: Rodney Stone M.D. 01/12/2021 2:06 PM Total Time Total Time Spent Total Time Spent (In Minutes): 20 Total Time Includes: Examination of the Patient, Discharge Planning and Medication Reconciliation Discharge Plan Discharge Items Patient Disposition: Home - Home Health Services Reason For Visit: Left Primary Osteoarthritis of Knee Discharge Diagnosis: Left total knee replacement Condition on Discharge: Good Activity: Per Instructions section Lifting: Wait until after follow-up appointment Exercise/Sports: Wait until after follow-up appointment Weightbearing Comment: WBAT with walker Non-emergency contact: Surgeon Call non-emergency contact if: you have any medication questions, your temperature is above 101, your wound has increased redness, your wound has increased drainage and your wound pain has increased Follow-up/Referrals: Romain Sim DO [Primary Care Provider] - Diet: Regular Addtl Attending Provider Instructions: ACTIVITY RECOMMENDATIONS: SELF CARE INSTRUCTIONS AFTER TOTAL KNEE REPLACEMENT A. You may need to continue a physical therapy program after discharge from the hospital. There are several options available to you. Your doctor will assist you in selecting the best one for you. 1. An out-patient facility 2 to 3 times a week for therapy or home therapy. 2. Continue working on all exercises taught to you in the hospital. Your goals should be to increase bending of your knee to 90 degrees and beyond and to fully straighten your knee. B. You may progress at your own pace from walking with a walker or crutches to a cane; then to no assistive devices. C. Make walking a part of your daily routine. Be up as much as comfortable with rest periods throughout the day. Rest with leg elevation is very important. Use the ice wrap frequently for the first 3-4 weeks. D. There are no restrictions on activities. You may ride in a car, shop, participate in assistant loan processor and all social activities. E. Wear the long elastic stockings (ADILENE hose) 20 hours a day for 2 weeks after surgery. They can be removed several times a day for laundering and for a bath. F. You may shower, no tub baths until cleared by your doctor. SPECIAL CARE INSTRUCTIONS: VERY IMPORTANT TO READ AND REVIEW A. There are a few signs you need to watch for after you are home. Call [facility] if you notice any of the followin. Increased severe knee pain. Some pain is expected especially when you exercise. 2. Increased swelling in your leg or knee; pain or swelling of the calf muscle in either lower leg. 3. Any fluid drainage from the incision. 4. Shortness of breath or chest pain. B. Please call [facility] at if you have any concerns or questions about your operation or recovery. The doctor or his nurse will return your call promptly. C. You must take antibiotics before dental work, bladder, bowel or other surgery. Your doctor will provide you with a permanent care to carry describing this precaution. IMPORTANT: * REMEMBER TO TAKE ASPIRIN, 81 MG, TWICE DAILY FOR 4 WEEKS UNLESS OTHERWISE DIRECTED. THIS IS YOUR BLOOD THINNER. * HIGH RISK PATIENTS MAY BE PRESCRIBED A STRONGER BLOOD THINNER. THIS WILL BE PROVIDED AT DISCHARGE. * CALL IF INCREASED PAIN, REDNESS, DRAINAGE OR FEVER GREATER THAT 101. * WEAR ADILENE HOSE 20 HOURS PER DAY FOR 2 WEEKS. * IDANIA Dressing- This is a large suction dressing covering your incision. This will help pull any excess drainage from the wound and allow your incision to heal properly. You may shower with this if you can keep the unit outside of the shower. If any bleeding or leakage is noted please call your doctor's office. This will remain on your incision for 7 days and then should be removed. This can be done yourself or by the home nursing staff if applicable. The entire unit is disposable once removed. Once removed, keep incision clean and dry. If redness or drainage is noted, please call your surgeon. IF INCISION IS LEAKING THROUGH DRESSING, CALL THE OFFICE . FOLLOW UP VISIT: If appointment is not already scheduled: Please call [facility] to make a follow-up appointment for 2 weeks after your surgery at . Pending Studies at Discharge: No Stand-Alone Forms: [facility] Medications and DC Order Prescriptions: New acetaminophen 500 mg Tablet 1,000 mg PO Q8 21 Days Qty: 126 RF: 0 oxycodone 5 mg Tablet 5 - 10 mg PO Q6H PRN (Reason: pain) Qty: 18 RF: 0 enoxaparin 40 mg/0.4 mL Syringe 40 mg subcut Q24H 14 Days Qty: 5.6 RF: 0 docusate sodium 100 mg Capsule 100 mg PO BID 10 Days Qty: 20 RF: 0 clindamycin HCl 300 mg capsule 300 mg PO TID 7 Days Qty: 21 RF: 0 Continued valacyclovir 500 mg tablet 500 mg PO BID Qty: 60 RF: 5 tizanidine 2 mg capsule 2 mg PO Q8H PRN (Reason: muscle spasticity) Qty: 270 RF: 1 hydroxyzine HCl 25 mg tablet 25 mg PO BID PRN (Reason: anxiety) Qty: 30 RF: 1 lidocaine 5 % adhesive patch,medicated 1 patch TOP DAILY Qty: 30 RF: 5 metoprolol tartrate 25 mg tablet 25 mg PO BID Qty: 180 RF: 3 clobetasol 0.05 % cream 1 applic TOP BID Qty: 60 RF: 3 albuterol sulfate [Ventolin HFA] 90 mcg/actuation HFA aerosol inhaler 1 inh inhalation QID PRN (Reason: shortness of breath or wheezing) Qty: 8.5 RF: 1 epinephrine [EpiPen] 0.3 mg/0.3 mL auto-injector 0.3 mg IM ONCE PRN (Reason: anaphylaxis) Qty: 2 RF: 3 buprenorphine-naloxone [Suboxone] 8-2 mg Tablet, Sublingual 1 tab SUBLINGUAL BID RF: 0 gabapentin 800 mg tablet 800 mg PO BID RF: 0 Discontinued methotrexate sodium 2.5 mg tablet See Rx Instructions PO WEEKLY Qty: 40 RF: 0 Discharge Orders: Discharge Order (Routine); Ordered 01/13/21 Ordered By: Bipin Moran Admission Data Admit Date/Time: 01/12/21 13:31 Attending Provider: Jan Yuan Admit Provider: Jan Yuan Primary Care Provider: Romain Sim Other Providers: Cameron Chambers
== END 2021-01-13 16:01 | disposition home or self-care (01) | DRG 470 ==
LOC: 3E 06:36 → ASU 06:36 → OBSVTOIN 13:31